=== PATIENT | female | born 1980 | race African-American/Black ===

== ENCOUNTER 2018-08-01 06:33 | Emergency (ER) | payer MEDICAID, OTHER ==
[~2018-08-01] VITALS: Ht 154.9 cm; Wt 154.6 kg
[2018-08-01] MEDS ORDERED: IBUPROFEN 600 MG TABLET PO ONE (09:30)
[2018-08-01 10:26] VITALS: BP 138/86
== END 2018-08-01 10:31 | disposition home or self-care (01) ==
LOC: EMS 06:33
DX: S93.601A Unspecified sprain of right foot, initial encounter (principal); E66.01 Morbid (severe) obesity due to excess calories; J45.909 Unspecified asthma, uncomplicated; Z68.44 Body mass index [BMI] 60.0-69.9, adult; Z88.0 Allergy status to penicillin; X58.XXXA Exposure to other specified factors, initial encounter; Y93.01 Activity, walking, marching and hiking; Y92.22 Religious institution as the place of occurrence of the external cause; Y99.8 Other external cause status

== ENCOUNTER 2021-04-23 08:45 | Day surgery (SDC) | payer OTHER ==
[2021-04-21 10:28] LABS: COVID AG,FIA SOURCE NASAL SWAB
[~2021-04-23] VITALS: Ht 152.4 cm; Wt 162.7 kg
[~2021-04-23 08:45] MED LIST: SODIUM CHLORIDE 0.9% 1,000 ML ONE
[2021-04-23] MEDS ORDERED: LIDOCAINE/PF 2% 5 ML VIAL IM ONE (08:46)
[2021-04-23] MEDS ORDERED: PROPOFOL 1% 20 ML VIAL IVP ONE (08:46)
[2021-04-23] MEDS ORDERED: SODIUM CHLORIDE 0.9% 1,000 ML IV ONE (09:00)
[2021-04-23] MEDS ORDERED: MIDAZOLAM HCL 5 MG/ML VIAL ONE (11:24)
[2021-04-23] MEDS ORDERED: FentaNYL CITRATE PF 100 MCG/2 ML VIAL ONE (11:24)
[2021-04-23] MEDS ORDERED: OXYGEN THERAPY IH SCH (20:00)
== END 2021-04-23 14:15 | disposition home or self-care (01) ==
LOC: SURGERY 08:45
PROVIDERS: ATTEND Specialist
DX: K29.50 Unspecified chronic gastritis without bleeding (principal); J45.909 Unspecified asthma, uncomplicated; B96.89 Other specified bacterial agents as the cause of diseases classified elsewhere; K31.89 Other diseases of stomach and duodenum; E66.01 Morbid (severe) obesity due to excess calories; Z79.899 Other long term (current) drug therapy; Z88.0 Allergy status to penicillin; Z98.890 Other specified postprocedural states
CPT/HCPCS: 43239; 84703; 87426; 88305; 88312; 88313; C1769; C9803; J2704; J3490; J7030; J2250; J3010

== ENCOUNTER 2021-10-22 09:32 | Day surgery (SDC) | payer OTHER ==
[2021-10-20 12:20] LABS: COVID AG,FIA SOURCE NASAL SWAB
[~2021-10-22] VITALS: Ht 154.9 cm; Wt 159.5 kg
[~2021-10-22 09:32] MED LIST changes: +IBUP-2070 PO; +SODIUM CHLORIDE 0.9% 1,000 ML IV ONE; -SODIUM CHLORIDE 0.9% 1,000 ML ONE
[2021-10-22] MEDS ORDERED: SODIUM CHLORIDE 0.9% 1,000 ML ONE (10:10)
[2021-10-22] MEDS ORDERED: OXYGEN THERAPY IH SCH (20:00)
== END 2021-10-22 13:35 | disposition home or self-care (01) ==
LOC: SURGERY 09:32
PROVIDERS: ATTEND Specialist
DX: R19.7 Diarrhea, unspecified (principal); R10.9 Unspecified abdominal pain; Z88.0 Allergy status to penicillin; J45.909 Unspecified asthma, uncomplicated; Z88.8 Allergy status to other drugs, medicaments and biological substances; G89.29 Other chronic pain; Z79.899 Other long term (current) drug therapy; Z98.890 Other specified postprocedural states
CPT/HCPCS: 45380; 84703; 87426; 88305; C1769; C9803; J7030